=== PATIENT | female | born 1965 | race Caucasian/White ===

== ENCOUNTER → 2017-02-19 | Outpatient (CLI) | payer OTHER ==
[~2017-02-19] MED LIST: ACETAMINOPHEN PO; BACTRIM DS TABL1 TA1 PO; CIPRO PO; HUMALOG100 U/M2 SUBQ; KEPPRA500 M2 PO; LANTUS100 U/ML SUBQ; NEXIUM PO; VENTOLIN5 MG/ML; VOLTAREN75 MG PO; ZOFRAN ODT4 MG/UDTAB SL
--- NOTE | ~2017-02-19 | CT16 ---
[facility] A Service of [facility] RADIOLOGY TEXT RESULTS PATIENT: JAYNE GRAY LOCATION: [facility] : 61 UNIT #: [id number] AGE: [address]: Sahara Valadez SEX: F ORDER DR: [id number] [facility] [address] [place], [place] [address] [id number] O MR#: [id number] [facility] #: [id number] NAME: JAYNE GRAY. : 1965 SEX: F STUDY DATE/TIME: 02/19/2017 16:37 UNIT: [facility] ROOM: STUDY DESCRIPTION: CT Angio Chest for PE Attending Physician: Sahara Valadez A.P.R.N. Referring Physician: Sahara Valadez A.P.R.N. Ordering Physician: Sahara Valadez A.P.R.N. Primary Care Physician: Rick Alan [place] MEDICAL IMAGING REPORT This report is preliminary unless electronic signature is present REVISED REPORT SEE ADDENDUM EXAM CTA chest with contrast, pulmonary embolism protocol. DATE 02/19/2017 HISTORY 51-year-old female with complaints of chest pain and shortness of breath for 1 week. Diabetes. Hypertension. COMPARISON PA and lateral chest radiograph 11/07/2013. No prior CT chest at this institution for comparison. PROCEDURE 2 mm axial images through the chest after IV contrast administration. 3-D coronal MIP reformatted images were obtained. This CT exam was performed with one or more of the following radiation dose reduction techniques: Automatic exposure control, adjustment of mA and/or kV according to patient size, and iterative reconstruction. FINDINGS There is no pulmonary embolism, aortic aneurysm or aortic dissection. Heart size is within normal limits. No pericardial effusion, pleural effusion or pneumothorax. No pathologic adenopathy. No acute airspace disease. No abnormal bronchial wall thickening or mucous plugging. Liver is steatotic and there are signs of ventral abdominal hernia repair. Osseous structures within normal limits. [facility] A Service [facility] RADIOLOGY TEXT RESULTS PATIENT: JAYNE GRAY LOCATION: [facility] ACC #: [id number] : 61 UNIT #: [id number] AGE: [address]: Sahara Valadez SEX: F ORDER DR: IMPRESSION 1. No pulmonary embolism. No acute chest findings. 2. Request was made for STAT call to Sahara Valadez. However, the answering service has intercepted this call. I am currently awaiting return call from Dr. House to discuss the pertinent, negative findings. 3. Hepatic steatosis and ventral abdominal hernia repair. Dictated by... Camille Mcnulty M.D. THIS IS AN ELECTRONICALLY VERIFIED REPORT Camille Mcnulty M.D. at 02/21/2017 9:37 PM [facility] TD: 02/19/2017 20:15 JOB #: [id number] ADDENDUM Request for call back to aShara Valadez, Oni was honored, with the provided callback number of [phone] utilized. The answering service contacted Dr. House. He has informed me that Ms. Valadez has not worked with this group for several years. At this point, as this is a negative study, patient will be released from the radiology department at this time. JOB: [id number] Dictated by... Camille Mcnulty M.D. [facility] TD: 02/19/2017 20:23 JOB #: [id number] SECOND ADDENDUM I was provided with another contact number for Ms. Valadez, who I was told [facility] A Service of [facility] RADIOLOGY TEXT RESULTS PATIENT: JAYNE GRAY LOCATION: [facility] ACC #: [id number] : 61 UNIT #: [id number] AGE: [address]: Sahara Valadez SEX: F ORDER DR: works for Dr. Whatley's office. I attempted to call [phone] multiple times, but the automated service keeps hanging up. As I have not been provided with an accurate call back number, I will make no further attempts at this time, particularly since this is a negative study. JOB: [id number] Dictated by... Camille Mcnulty M.D. THIS IS AN ELECTRONICALLY VERIFIED REPORT Camille Mcnulty M.D. at 03/17/2017 8:33 AM [facility] TD: 02/19/2017 20:28 JOB #: [id number] CC: [email or web address] Please Delete MEDICAL IMAGING REPORT Page 1 of 1 COPY
[2017-02-19 19:50] LABS: POC - CREATININE 0.66 mg/dL (0.44-1.03); POC - GFR >60.0 mL/min (>60)
== END | disposition home or self-care (01) ==
LOC: CCAT 14:40
PROVIDERS: Registered Nurse
DX: R07.9 Chest pain, unspecified (principal); R06.00 Dyspnea, unspecified; R53.83 Other fatigue; R06.83 Snoring; Z98.890 Other specified postprocedural states
CPT/HCPCS: 36415; 71275; 82565; 85379; Q9967